=== PATIENT | male | born 1955 | race African-American/Black ===

== ENCOUNTER 2019-10-18 16:53 | Emergency (ER) | payer MEDICAID ==
[~2019-10-18] VITALS: Ht 182.9 cm; Wt 83.9 kg
--- NOTE | 2019-10-18 17:00 | NUR ---
pt called to triage, pt not in waiting room
[2019-10-18 17:19] VITALS: BP 152/104
[2019-10-18] MEDS ORDERED: ACETAMINOPHEN 325 MG TABLET PO ONE (17:30)
[2019-10-18] MEDS ORDERED: ACETAMINOPHEN ES 500 MG TABLET ONE (17:31)
--- NOTE | 2019-10-18 18:34 | NUR ---
pt seen and evaluated by destini grajeda. tylenol 1g given and pt was provided w/ meal. d/c home in stable condition.
== END 2019-10-18 18:40 | disposition home or self-care (01) ==
LOC: ER 17:02
DX: M79.604 Pain in right leg (principal); M79.605 Pain in left leg